=== PATIENT | female | born 1990 | race Caucasian/White ===

== ENCOUNTER 2018-12-02 19:12 | Emergency (ER) | payer OTHER, SELFPAY ==
[2018-12-02] VITALS (17 sets, daily range): BP systolic 107–136; BP diastolic 68–75; PULSE 75–98; RESP 11–20; TEMP 36.6; O2SAT 98–100
[2018-12-02 19:37] LABS: Abs Immature Grans 0.01 k/cumm (0.0-0.09); Absolute Basophil Count 0.02 k/cumm (0.0-0.2); Absolute Lymphocyte Count 2.77 k/cumm (1.2-3.4); Absolute Monocyte Count 0.44 k/cumm (0.11-0.7); Absolute Neutrophil Count 3.59 k/cumm (1.2-6.7); Basophils % 0.3; Eosinophils % 1.4; HCT 42.8 % (36.0-46.0); HGB 14.5 g/dL (12.0-15.5); Immature Grans % 0.1; Mean Corp. HGB Concentration 33.9 g/dL (32.0-36.0); Mean Corpuscular Hemoglobin 30.7 pg (27.0-33.0); Mean Corpuscular Volume 90.7 fL (80-95); Mean Platelet Volume 9.8 fL (8.0-11.0); Monocytes % 6.3; Neutrophils % 51.9; Platelet Count 227 x1000/uL (130-400); RBC 4.72 m/cumm (4.00-5.20); RBC Distribution Width 12.4 % (11.7-14.6); White Blood Cell Count 6.93 k/cumm (4.4-10.8)
[2018-12-02] MEDS: Normal Saline 1,000 ML 1000 ML IV (19:47)
[2018-12-02 19:50] LABS: ALT 38 U/L (14-59); AST 15 U/L (15-37); Albumin 4.1 g/dL (3.4-5.0); Alkaline Phosphatase 74 U/L (46-116); Anion Gap 10.5 mmol/L (3-11); BUN 18 mg/dL (7-18); Bilirubin, Total 0.2 mg/dL (0.2-1.0); CO2 26.5 mmol/L (21.0-32.0); CREATININE 0.71 mg/dL (0.55-1.02); Calcium 9.2 mg/dL (8.5-10.1); Chloride 104 mmol/L (98-107); Glucose 109 mg/dL (70-100); Potassium 3.5 mmol/L (3.5-5.1); Sodium 141 mmol/L (136-145); Total Protein 7.9 g/dL (6.4-8.2)
--- NOTE | 2018-12-02 21:34 | ED.GENADUL_ITS ---
Discharge Plan Disposition Patient Disposition: HOME Condition: Improving Discharge Details Chief Complaint: GenMedical Clinical Impression: Adverse reaction to cholinergic Primary Care Provider: Sonia,Local ED Provider: Thang Lenz Home Meds and New Rx's Prescriptions: No Action pyridostigmine bromide 180 mg Tablet Extended Release 180 mg PO DAILY RF: 0 Discharge Instructions Additional Instructions: Please hold your pyridostigmine tomorrow and discuss future dosing with Dr. Murdock.. Please contact your primary care physician to arrange follow-up. Return to the ER for any worsening or new concerning symptoms. Medical Decision Making 21:39 --28-year-old female with history of dysautonomia, chronic fatigue syndrome, small fiber polyneuropathy, on pyridostigmine, here after sudden onset of symptoms consistent with cholinergic crisis did laxative approximately 1 hour now resolving. Considered electrolyte abnormalities. Labs reviewed and nondiagnostic. IVF fluid given. Suspect mild resolving cholinergic crisis secondary to pyridostigmine. No indication at this time for atropine. I have attempted to contact patient's prescribing physician Dr. Murdock at [facility] and awaiting callback. 22:22 -- [facility] with pulmonary [facility] who reviewed the patient's medical record, I discussed ED presentation and course, he recommended either stopping the pyridostigmine now or continuing to take if she dervies benefit but to follow-up with Dr. Murdock. --Patient reassessed and has been asymptomatic here for 2 hours. She is feeling much better. I spoke with the patient and her family and she elected to hold dosing tomorrow and will talk with Dr. Murdock on Tuesday. Disposition decision was made weighing the risks and benefits of hospitalization versus outpatient treatment, the risk for further decompensation, and the patient's wishes. The patient was stable and requested discharge. Prior to discharge, my usual and customary return precautions were reviewed with the patient - this included follow-up instructions and reason to return to the emergency department if condition worsens, does not improve as expected, or other new concerns arise. HPI General Mode of arrival: ambulatory . Date/Time Provider Initiated Documentation: 12/02/18 19:13 . Limitations to Documentation: no limitations . Information obtained by: patient . HPI Narrative: 28-year-old female with history of chronic fatigue syndrome, dysautonomia, small fiber polyneuropathy, currently taking pyridostigmine, here after episode of sudden onset abdominal discomfort, diarrhea, salivation, dizziness, generalized weakness, muscle twitching, and crying that started around 6 PM and lasted approximately 1 hour. She notes she is now feeling better. Symptoms were severe with no modifiers. Patient notes she is been taking her medication as prescribed. No new medications or herbal supplements. No new dietary changes. Related Data Home Medications Medication Instructions Recorded Confirmed pyridostigmine bromide 180 mg PO DAILY 12/02/18 12/02/18 Allergies Allergy/AdvReac Type Severity Reaction Status Date / Time citalopram Allergy Severe Hives Unverified 12/02/18 19:21 General Stated Complaint: GenMedical JOHNNY: 3 Review of Systems All systems reviewed & are unremarkable except as noted in HPI and below Constitutional Constitutional: Denies fever(s) Cardiovascular Cardiovascular: Denies dyspnea Respiratory Respiratory: Denies dyspnea [facility] Medical History Chronic fatigue syndrome (Acute) Dysautonomia (Acute) Small fiber polyneuropathy (Acute) Social History Smoking/Tobacco Use Status: Never Alcohol Intake: never Substance use type: does not use Additional Social history: pt is not alone to assess privately Exam Const General: cooperative and no acute distress HENMT Mouth: moist mucous membranes Eyes Conjunctivae: normal conjunctivae Sclera: normal sclerae Neck Neck: trachea midline and supple Resp Auscultation: clear to auscultation bilaterally, no rales, no rhonchi and no wheezes Cardio Rate: regular rate and not tachycardic Rhythm: regular rhythm GI Palpation: soft, not firm, no guarding, no masses, not rigid and nontender Skin General skin exam: no rashes or lesions noted Neuro General: alert, awake and tone normal Cognition: normal cognition Speech: speech normal Motor: muscle tone normal throughout Extrem General: no edema Course Vital Signs Vital signs: Vital Signs Temperature 36.6 C 12/02/18 19:17 Pulse 90 12/02/18 19:17 Respiratory Rate 18 12/02/18 19:17 Blood Pressure 136/73 12/02/18 19:17 Pulse Oximetry 100 12/02/18 19:17 Temperature 36.6 C 12/02/18 19:17 Temperature Source Skin 12/02/18 19:17 Pulse 79 12/02/18 21:01 Pulse 83 12/02/18 21:01 Respiratory Rate 18 12/02/18 21:01 Respiratory Effort 12/02/18 19:36 Blood Pressure 112/69 12/02/18 21:01 Blood Pressure Mean 78 12/02/18 21:01 Pulse Oximetry 99 12/02/18 21:01 Pain Level 6 12/02/18 19:17 Lab/Test Results Lab/Test Results: Laboratory Tests Range/Units 12/02/18 12/02/18 19:34 19:34 WBC (4.4-10.8) k/cumm 6.93 RBC (4.00-5.20) m/cumm 4.72 Hgb (12.0-15.5) g/dL 14.5 Hct (36.0-46.0) % 42.8 MCV (80-95) fL 90.7 MCH (27.0-33.0) pg 30.7 MCHC (32.0-36.0) g/dL 33.9 RDW (11.7-14.6) % 12.4 Plt Count (130-400) x1000/uL 227 MPV (8.0-11.0) fL 9.8 Immature Gran % 0.1 Neutrophils % 51.9 Lymphocytes % 40.0 Monocytes % 6.3 Eosinophils % 1.4 Basophils % 0.3 Absolute Neutrophils (1.2-6.7) k/cumm 3.59 Absolute Lymphocytes (1.2-3.4) k/cumm 2.77 Absolute Monocytes (0.11-0.7) k/cumm 0.44 Absolute Eosinophils (0.0-0.7) k/cumm 0.10 Absolute Basophils (0.0-0.2) k/cumm 0.02 Sodium (136-145) mmol/L 141 Potassium (3.5-5.1) mmol/L 3.5 Chloride (98-107) mmol/L 104 Carbon Dioxide (21.0-32.0) mmol/L 26.5 Anion Gap (3-11) mmol/L 10.5 BUN (7-18) mg/dL 18 Creatinine (0.55-1.02) mg/dL 0.71 Estimated GFR/1.73 m2 (mL/min/1.73m2) >= 60.00 Glucose (70-100) mg/dL 109 H Calcium (8.5-10.1) mg/dL 9.2 Total Bilirubin (0.2-1.0) mg/dL 0.2 AST (15-37) U/L 15 ALT (14-59) U/L 38 Alkaline Phosphatase (46-116) U/L 74 Total Protein (6.4-8.2) g/dL 7.9 Albumin (3.4-5.0) g/dL 4.1
== END 2018-12-02 22:45 | disposition home or self-care (01) ==
PROVIDERS: Emergency Provider Student in an Organized Health Care Education/Training Program
DX: T44.3X5A Adverse effect of other parasympatholytics [anticholinergics and antimuscarinics] and spasmolytics, initial encounter (principal)
CPT/HCPCS: 80053; 96360; 99283; 85025

== ENCOUNTER 2019-08-14 12:14 | Outpatient (REF) | payer MEDICAID, SELFPAY ==
--- NOTE | 2019-08-14 11:30 | PAPFT_PTH ---
PATIENT: JEANCARLOS DUPONT LOC: [facility] U#:[id number] AGE/SX: 29/F ROOM: RE08/14/[address]: Melba Simpson DO : 1990 BED: DIS: 08/14/2019 SPEC #: [id number] RECD: 08/14/19 13:00 STATUS: TINA REQ #: [id number] FABIOLA: 08/14/19 11:[address]: Melba Simpson DEPT: [facility] Cytology RECD BY: Michaela Carey ENTERED: 08/14/19 13:00 SP TYPE: PAPFT OT DR: Sonia Local Tissues: 1 - CX/ENDOCX FOR PAP SMEARS Procedures: PAP THIN PREP/[facility] Screening Comments: [id number]
== END 2019-08-14 12:34 ==
LOC: LBN 12:14
PROVIDERS: Visit Provider Obstetrics & Gynecology
DX: Z12.4 Encounter for screening for malignant neoplasm of cervix (principal)
CPT/HCPCS: 88142